=== PATIENT | male | born 1990 | race Caucasian/White ===

== ENCOUNTER 2017-08-16 16:13 | Emergency (ER) | payer MEDICAID, OTHER ==
--- NOTE | 2017-08-16 16:57 | EDM.PDOC ---
<Rashida Warren M - Last Filed: 08/16/17 16:52> ED HPI GENERAL MEDICAL PROBLEM - General Chief Complaint: ENT Problem Stated Complaint: EAR PAIN/SORE THROAT Time Seen by Provider: 08/16/17 16:20 Source of Information: Reports: Patient History Limitations: Reports: No Limitations - History of Present Illness INITIAL COMMENTS - FREE TEXT/NARRATIVE: Patient comes in today for complaint of sinus pressure, rhinorrhea, otalgia, throat pain, and cough x 3 days. Patient's girlfriend was diagnosed with tonsilitis last week. Throat pain has been increasing since the onset. He has tried taking ibuprofen, which reduced his throat pain. Nothing makes the pain worse. Patient denies fever, chills, or lymphadenopathy. Onset: Gradual Onset Date: 08/13/17 Duration: Getting Worse Improves with: Reports: Medication (Ibuprofen) Worsens with: Reports: None Context: Reports: Sick Contact Associated Symptoms: Reports: Cough. 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 ears/throat Pain Score (Numeric/FACES): 5 - Related Data Allergies Allergy/AdvReac Type Severity Reaction Status Date / Time No Known Allergies Allergy Verified 08/16/17 16:21 Home Meds: Home Meds Amoxicillin 1,000 mg PO BID #40 tab 08/16/17 [Rx] Past Medical History - Past Health History Medical/Surgical History: Denies Medical/Surgical History Social & Family History - Family History Family Medical History: Noncontributory - Tobacco Use Smoking Status *Q: Never Smoker - Caffeine Use Caffeine Use: Reports: None - Recreational Drug Use Recreational Drug Use: No ED ROS ENT - Review of Systems Review Of Systems: See Below Constitutional: Reports: No Symptoms. Denies: Fever, Chills HEENT: Reports: Ear Pain, Sinus Problem, Throat Pain. Denies: Ear Discharge, Hearing Loss, Throat Swelling Respiratory: Reports: Cough. Denies: Shortness of Breath, Wheezing Cardiovascular: Reports: No Symptoms Hematologic/Lymphatic: Denies: Swollen Glands ED EXAM, ENT - Physical Exam Exam: See Below General Appearance: Alert, WD/WN, No Apparent Distress Ears: Normal External Exam, Normal Canal, Hearing Grossly Normal, Normal TMs. No: Canal Swelling, TM Bulging, TM Erythema Nose: Normal Inspection, Normal Mucousa, No Blood Mouth/Throat: Normal Gums, Normal Lips, Normal Teeth, Pharyngeal Erythema, Throat Pain. No: Normal Oropharynx, Drooling, Hoarse Voice, Muffled Voice, Throat Swelling, Tonsillar Erythema, Tonsillar Exudates, Trismus, Uvular Deviation Neck: Normal Inspection, Supple, Non-Tender, Full Range of Motion. No: Lymphadenopathy (L), Lymphadenopathy (R) Respiratory/Chest: No Respiratory Distress, Lungs Clear, Normal Breath Sounds, No Accessory Muscle Use. No: Rales, Rhonchi, Wheezing, Pleural Rub Cardiovascular: Normal Peripheral Pulses, Regular Rate, Rhythm, No Edema, No Gallop, No Murmur, No Rub Lymphatic: No Adenopathy Course - Vital Signs Last Recorded V/S: Last Vital Signs Temp 98.4 F 08/16/17 16:15 Pulse 100 08/16/17 16:15 Resp 18 08/16/17 16:15 BP 131/84 08/16/17 16:15 Pulse Ox 98 08/16/17 16:15 - Orders/Labs/Meds Orders: Active Orders 24 hr Category Date Time Status CULTURE STREP A CONFIRMATION [RM] Stat Lab 08/16/17 16:20 Results STREP SCRN A RAPID W CULT CONF [RM] Stat Lab 08/16/17 16:20 Results Departure - Departure Disposition: Home, Self-Care 01 Clinical Impression: Pharyngitis Qualifiers: Pharyngitis/tonsillitis etiology: other specified organisms Qualified Code(s): J02.8 - Acute pharyngitis due to other specified organisms - Discharge Information Prescriptions: Amoxicillin 1,000 mg PO BID #40 tab Referrals: PCP,Not In Area [Primary Care Provider] - Forms: ED Department Discharge Additional Instructions: Take the amoxicillin 2 pills 2 times per day for 10 days. Take motrin or tylenol for pain. Try some throat lozenges or chlorseptic spray for your throat. Please return if you are worse. - My Orders Last 24 Hours: My Active Orders 08/16/17 16:20 CULTURE STREP A CONFIRMATION [RM] Stat STREP SCRN A RAPID W CULT CONF [RM] Stat - Assessment/Plan Last 24 Hours: My Active Orders 08/16/17 16:20 CULTURE STREP A CONFIRMATION [RM] Stat STREP SCRN A RAPID W CULT CONF [RM] Stat <Nathan Barrientos A - Last Filed: 08/16/17 17:14> ED ROS ENT - Review of Systems Review Of Systems: See Below ED EXAM, ENT - Physical Exam Exam: See Below Course - Re-Assessments/Exams Free Text/Narrative Re-Assessment/Exam: 08/16/17 17:08 I ordered a rapid strep that was negative. I examined the patient myself and agree with Rashida's assessment and plan. The rapid strep was negative. His girlfriend was treated for strep. I feel I need to treat him. Departure - Departure Time of Disposition: 17:15 Condition: Good
== END 2017-08-16 17:18 | disposition home or self-care (01) ==
LOC: JD.ED 16:13
DX: J02.9 Acute pharyngitis, unspecified (principal)
CPT/HCPCS: 87081; 87430; 99283